=== PATIENT | male | born 1985 | race Asian ===

== ENCOUNTER 2018-01-14 10:08 | Outpatient (CLI) | payer BC ==
--- NOTE | 2018-01-14 10:45 | ULT ---
GALLBLADDER ULTRASOUND: History: Right upper quadrant pain. FINDINGS: Real-time imaging of the right upper quadrant shows a normal appearing gallbladder. The common duct i s 3 mm. Visualized liver parenchyma is unremarkable. Technologist reports a negative ultrasound Elda y's sign. Right kidney is normal in size and not obstructed. The pancreas is obscured. IMPRESSION: Unremarkable gallbladder ultrasound. POS: [facility]
== END 2018-01-14 10:09 | disposition home or self-care (01) ==
LOC: SCSULT 10:08
PROVIDERS: ATTEND Family Medicine
DX: R10.11 Right upper quadrant pain (principal)
CPT/HCPCS: 76705

== ENCOUNTER 2018-11-10 22:37 | Emergency (ER) | payer BC | END 2018-11-10 23:30 | disposition home or self-care (01) | LOC: ERS 22:37 | DX: S30.811A Abrasion of abdominal wall, initial encounter (principal); W54.8XXA Other contact with dog, initial encounter | CPT/HCPCS: 99283 ==